=== PATIENT | female | born 1965 | race Caucasian/White ===

== ENCOUNTER 2018-03-24 21:20 | Observation (INO) | payer OTHER ==
[~2018-03-24] VITALS: Ht 162.6 cm; Wt 66.4 kg
[2018-03-25 03:30] LABS: HEMATOCRIT 35.6 % (36.0-46.0); HEMOGLOBIN 12.4 G/DL (11.9-15.5); MCH 31.1 PG (29.0-34.0); MCHC 34.8 G/DL (30.0-36.0); MCV 89.2 FL (83-99); PLATELET COUNT 269 K/uL (156-360); RBC DIS.WIDTH-CV 11.7 % (11.8-14.6); RBC DIS.WIDTH-SD 37.9 % (39-53); RED BLOOD COUNT 3.99 M/uL (3.80-5.20); WHITE BLOOD COUNT 4.9 K/uL (4.1-10.2)
[2018-03-25 03:44] LABS: CHLORIDE 100 mEq/L (99-109); SODIUM 138 mEq/L (136-147)
[2018-03-25 03:45] LABS: GLUCOSE 114 mg/dL (70-99)
[2018-03-25 03:49] LABS: CREATININE 0.7 mg/dL (0.6-1.3); GFR ESTIMATE (CALCULATED) > 59 mL/min/
[2018-03-25 03:50] LABS: UREA NITROGEN (BUN) 8 mg/dL (9-23)
[2018-03-25 10:41] VITALS: BP 105/50
[2018-03-25] MEDS ORDERED: OXYCONTIN10 MG PO (11:51)
[2018-03-25] MEDS ORDERED: ROXICODONE5 MG PO (11:52)
[2018-03-25] MEDS ORDERED: ZANTAC300 MG PO (11:52)
[2018-03-25] MEDS ORDERED: VALIUM5 MG PO (11:52)
[2018-03-25] MEDS ORDERED: COLACE100 MG PO (11:53)
[2018-03-25] MEDS ORDERED: EFFEXOR XR150 MG PO (11:53)
[2018-03-25] MEDS ORDERED: ADVAIR 250/501 DISK IH (11:53)
[2018-03-25] MEDS ORDERED: SINGULAIR10 MG PO (11:53)
[2018-03-25] MEDS ORDERED: ADDERALL20 MG PO (11:53)
[2018-03-25] MEDS ORDERED: PROAIR HFA8.5 GM IH (11:54)
[2018-03-25] MEDS ORDERED: ADAPALENE45 GM TP (11:54)
[2018-03-25] MEDS ORDERED: ACZONE60 GM TP (11:55)
[2018-03-25 12:37] VITALS: BP 110/71
[2018-03-25 16:08] VITALS: BP 107/64
[2018-03-26 00:01] VITALS: BP 132/66
[2018-03-26 08:32] VITALS: BP 111/58
[2018-03-26 11:58] VITALS: BP 134/73
[2018-03-26] MEDS ORDERED: ROXICODONE5 MG PO (15:44)
[2018-03-26] MEDS ORDERED: ADDERALL20 MG PO (15:44)
[2018-03-26] MEDS ORDERED: OXYCONTIN10 MG PO (15:44)
[2018-03-26] MEDS ORDERED: VALIUM5 MG PO (15:44)
== END 2018-03-26 18:40 | disposition home or self-care (01) ==
LOC: EME 21:20 → EXP 21:20 → 4SOUTH 03-25 07:58 → EDOF 03-25 07:58 → ENRESERV 03-25 08:07 → 4SOUTH 03-25 09:23
PROVIDERS: Physician Assistant
DX: G89.18 Other acute postprocedural pain (principal); Z98.1 Arthrodesis status; M54.9 Dorsalgia, unspecified; M25.551 Pain in right hip; M79.652 Pain in left thigh; R29.6 Repeated falls; R26.89 Other abnormalities of gait and mobility; G89.29 Other chronic pain; J45.909 Unspecified asthma, uncomplicated; K21.9 Gastro-esophageal reflux disease without esophagitis; F41.9 Anxiety disorder, unspecified; G47.419 Narcolepsy without cataplexy; Z82.49 Family history of ischemic heart disease and other diseases of the circulatory system; Z88.6 Allergy status to analgesic agent; Z91.040 Latex allergy status
CPT/HCPCS: 72158; 80048; 81003; 85027; 94640; 94640 76; 97530 GP; 99202; 99281; 99284; G0378; G8978 GP CH; G8978 GP CI; G8979 GP CH; G8980 GP CI; G8987 GO CI; G8988 GO CH; G8989 GO CI; J1650; J2930; J3010